=== PATIENT | female | born 1975 | race Caucasian/White ===

== ENCOUNTER 2023-08-04 21:49 | Inpatient (IN) | payer OTHER ==
[~2023-08-04] VITALS: Ht 175.3 cm; Wt 95.3 kg
[2023-08-04 22:00] VITALS: BP 107/78; TEMP 97.8; O2SAT 99
[2023-08-04] MEDS ORDERED: MORPHINE SULFATE INJ 4 MG/ML DISP.SYRIN IV PRN (23:00)
[2023-08-05] MEDS ORDERED: ONDANSETRON HCL/PF 4 MG/2 ML VIAL IVP PRN (00:30)
[2023-08-05] MEDS ORDERED: DEXTROSE 50%-WATER 50 ML DISP.SYRIN IV PRN (00:30)
[2023-08-05] MEDS ORDERED: ENOXAPARIN SODIUM 30 MG/0.3 ML DISP.SYRIN SQ SCH (00:30)
[2023-08-05] MEDS ORDERED: Z GUARD REMEDY 4 OZ OINT TP PRN (00:30)
[2023-08-05] MEDS ORDERED: MAG HYDROX/AL HYDROX/SIMETH 30 ML UDC PO PRN (00:30)
[2023-08-05] MEDS ORDERED: ZOLPIDEM TARTRATE 5 MG TABLET PO PRN (00:30)
[2023-08-05] MEDS ORDERED: ACETAMINOPHEN 325 MG TABLET PO PRN (00:30)
[2023-08-05] MEDS ORDERED: MAGNESIUM HYDROXIDE 30 ML UDC PO PRN (00:30)
[2023-08-05] MEDS ORDERED: CEFTRIAXONE 1GM BAG (ER ONLY) 50 ML IV ONE (00:43)
[2023-08-05] MEDS: PREGABALIN 25 MG CAPSULE PO SCH ×3 (00:54→16:08)
[2023-08-05] MEDS: IV NS 0.9% 1,000 ML IV PRN (00:54)
[2023-08-05] MEDS: CEFTRIAXONE 1 G in IV D5W 50 ML IV SCH (00:54)
[2023-08-05] MEDS: HYDROCODONE/APAP 5/325MG TABLET PO PRN ×2 (02:02→17:45)
[2023-08-05 06:04] LABS: BASOPHILS % (AUTO) 0.2 % (0.0-2.0); EOSINOPHILS % (AUTO) 0.4 % (0.0-6.0); HEMATOCRIT 26 % (33-45); HEMOGLOBIN 8.8 g/dL (11.5-14.8); LYMPHOCYTES # (AUTO) 1.7 K/uL (0.8-4.8); LYMPHOCYTES % (AUTO) 22.5 % (20.0-44.0); MEAN CORPUSCULAR HEMOGLOBIN 32 PG (26.0-33.0); MEAN CORPUSCULAR HGB CONC 34 g/dl (31.0-36.0); MEAN CORPUSCULAR VOLUME 96 fL (82-100); MONOCYTES # (AUTO) 0.4 K/uL (0.1-1.30); MONOCYTES % (AUTO) 5.5 % (2.0-12.0); NEUTROPHILS # (AUTO) 5.4 K/uL (1.8-8.9); NEUTROPHILS % (AUTO) 71.4 % (43.0-81.0); PLATELET COUNT (AUTO) 181 K/uL (150-450); RED BLOOD CELL COUNT(AUTO) 2.72 MIL/uL (4.0-5.2); RED CELL DISTRIBUTION WIDTH 13.3 % (11.5-15.0); WHITE BLOOD COUNT (AUTO) 7.5 K/uL (4.3-11.0)
[2023-08-05 06:05] LABS: ALBUMIN 2.8 g/dL (3.4-5.0); BILIRUBIN,DIRECT 0.1 mg/dL (0.0-0.2); BILIRUBIN,TOTAL 0.2 mg/dL (0.2-1.0); CALCIUM, SERUM 8.4 mg/dL (8.5-10.1); CREATININE 1.3 mg/dL (0.6-1.3); MAGNESIUM 2.1 mg/dL (1.8-2.4); PHOSPHORUS 3.9 mg/dL (2.5-4.9); POTASSIUM 3.5 mmol/L (3.5-5.1); TOTAL PROTEIN, SERUM 6.6 g/dL (6.4-8.2)
[2023-08-05] MEDS: BLOOD SUGAR DIAGNOSTIC 1 EACH STRIP IN SCH ×4 (06:16→21:18)
[2023-08-05 06:25] LABS: THYROID STIMULATING HORMONE 92.125 uIU/mL (0.358-3.74)
[2023-08-05 08:00] VITALS: BP 116/60; TEMP 97.5; O2SAT 98
[2023-08-05] MEDS ORDERED: NITR100C PO (08:08)
[2023-08-05] MEDS ORDERED: LEVO25TA7 PO (08:08)
[2023-08-05] MEDS ORDERED: NALO4SPR BNOSTRILS (08:08)
[2023-08-05] MEDS: LEVOTHYROXINE SODIUM 25 MCG TABLET PO SCH (08:15)
[2023-08-05] MEDS: PANTOPRAZOLE 40 MG VIAL IV SCH (08:41)
[2023-08-05] MEDS: INSULIN REGULAR, HUMAN 100 UNIT/ML 3 ML VIAL SQ PRN ×4 (09:19→21:34)
[2023-08-05 16:01] VITALS: BP 114/53; TEMP 97.8; O2SAT 95
[2023-08-05 20:00] VITALS: BP 142/92; TEMP 98.6; O2SAT 96
[2023-08-05] MEDS: ENOXAPARIN SODIUM 40 MG/0.4 ML DISP.SYRIN SQ SCH (20:48)
[2023-08-06] MEDS: CEFTRIAXONE 1 G in IV D5W 50 ML IV SCH (00:41)
[2023-08-06] MEDS: BLOOD SUGAR DIAGNOSTIC 1 EACH STRIP IN SCH ×4 (05:30→21:50)
[2023-08-06 05:58] LABS: BASOPHILS % (AUTO) 0.3 % (0.0-2.0); EOSINOPHILS % (AUTO) 0.9 % (0.0-6.0); HEMATOCRIT 28 % (33-45); HEMOGLOBIN 9.3 g/dL (11.5-14.8); LYMPHOCYTES # (AUTO) 2.1 K/uL (0.8-4.8); MEAN CORPUSCULAR HEMOGLOBIN 32 PG (26.0-33.0); MEAN CORPUSCULAR HGB CONC 33 g/dl (31.0-36.0); MEAN CORPUSCULAR VOLUME 96 fL (82-100); MONOCYTES # (AUTO) 0.3 K/uL (0.1-1.30); MONOCYTES % (AUTO) 6.4 % (2.0-12.0); NEUTROPHILS # (AUTO) 2.7 K/uL (1.8-8.9); NEUTROPHILS % (AUTO) 51.4 % (43.0-81.0); PLATELET COUNT (AUTO) 184 K/uL (150-450); RED BLOOD CELL COUNT(AUTO) 2.93 MIL/uL (4.0-5.2); RED CELL DISTRIBUTION WIDTH 13.3 % (11.5-15.0); WHITE BLOOD COUNT (AUTO) 5.2 K/uL (4.3-11.0)
[2023-08-06 06:32] LABS: CALCIUM, SERUM 8.4 mg/dL (8.5-10.1); CREATININE 1.4 mg/dL (0.6-1.3); MAGNESIUM 2.1 mg/dL (1.8-2.4); PHOSPHORUS 3.5 mg/dL (2.5-4.9); POTASSIUM 3.8 mmol/L (3.5-5.1)
[2023-08-06 06:49] LABS: T4 (THYROXINE) 1.1 ug/dL (4.7-13.3)
[2023-08-06 08:00] VITALS: BP 137/77; TEMP 98.7; O2SAT 93
[2023-08-06] MEDS: LEVOTHYROXINE SODIUM 25 MCG TABLET PO SCH (08:03)
[2023-08-06] MEDS: PREGABALIN 25 MG CAPSULE PO SCH ×2 (08:20→16:24)
[2023-08-06] MEDS: PANTOPRAZOLE 40 MG VIAL IV SCH (08:21)
[2023-08-06] MEDS: CADEXOMER IODINE 40 GM TUBE TP SCH (09:56)
[2023-08-06 11:27] LABS: THYROID STIMULATING HORMONE 139.96 uIU/mL (0.358-3.74)
[2023-08-06] MEDS: INSULIN REGULAR, HUMAN 100 UNIT/ML 3 ML VIAL SQ PRN ×3 (12:16→22:10)
[2023-08-06 16:00] VITALS: BP 143/84; TEMP 98.3; O2SAT 94
[2023-08-06] MEDS: IV NS 0.9% 1,000 ML IV PRN (18:35)
[2023-08-06 20:00] VITALS: BP 130/74; TEMP 98.2; O2SAT 96
[2023-08-06] MEDS: ENOXAPARIN SODIUM 40 MG/0.4 ML DISP.SYRIN SQ SCH (21:50)
[2023-08-07] MEDS: CEFTRIAXONE 1 G in IV D5W 50 ML IV SCH (00:36)
[2023-08-07] MEDS: BLOOD SUGAR DIAGNOSTIC 1 EACH STRIP IN SCH ×4 (06:19→21:12)
[2023-08-07] MEDS: INSULIN REGULAR, HUMAN 100 UNIT/ML 3 ML VIAL SQ PRN ×4 (06:23→21:15)
[2023-08-07] MEDS: HYDROCODONE/APAP 5/325MG TABLET PO PRN (07:58)
[2023-08-07 08:00] VITALS: BP 143/82; TEMP 97.6; O2SAT 97
[2023-08-07] MEDS: CADEXOMER IODINE 40 GM TUBE TP SCH (08:04)
[2023-08-07] MEDS: PANTOPRAZOLE 40 MG TABLET.DR PO SCH (08:05)
[2023-08-07] MEDS: PREGABALIN 25 MG CAPSULE PO SCH ×2 (08:05→17:42)
[2023-08-07] MEDS: LEVOTHYROXINE SODIUM 100 MCG TABLET PO SCH (08:05)
[2023-08-07 08:54] LABS: BASOPHILS % (AUTO) 0.6 % (0.0-2.0); HEMATOCRIT 32 % (33-45); HEMOGLOBIN 10.6 g/dL (11.5-14.8); LYMPHOCYTES # (AUTO) 1.6 K/uL (0.8-4.8); LYMPHOCYTES % (AUTO) 40.3 % (20.0-44.0); MEAN CORPUSCULAR HEMOGLOBIN 33 PG (26.0-33.0); MEAN CORPUSCULAR HGB CONC 34 g/dl (31.0-36.0); MEAN CORPUSCULAR VOLUME 98 fL (82-100); MONOCYTES # (AUTO) 0.2 K/uL (0.1-1.30); MONOCYTES % (AUTO) 5.7 % (2.0-12.0); NEUTROPHILS # (AUTO) 2.1 K/uL (1.8-8.9); NEUTROPHILS % (AUTO) 52.4 % (43.0-81.0); PLATELET COUNT (AUTO) 163 K/uL (150-450); RED BLOOD CELL COUNT(AUTO) 3.24 MIL/uL (4.0-5.2); RED CELL DISTRIBUTION WIDTH 13.2 % (11.5-15.0); WHITE BLOOD COUNT (AUTO) 4.1 K/uL (4.3-11.0)
[2023-08-07 09:31] LABS: ALBUMIN 3.3 g/dL (3.4-5.0); BILIRUBIN,TOTAL 0.2 mg/dL (0.2-1.0); CALCIUM, SERUM 9.3 mg/dL (8.5-10.1); CREATININE 1.2 mg/dL (0.6-1.3); MAGNESIUM 2.1 mg/dL (1.8-2.4); PHOSPHORUS 3.8 mg/dL (2.5-4.9); POTASSIUM 4.2 mmol/L (3.5-5.1); TOTAL PROTEIN, SERUM 8.5 g/dL (6.4-8.2)
[2023-08-07 09:41] LABS: C-REACTIVE PROTEIN 2.05 mg/dL (0.0-0.30)
[2023-08-07 14:39] LABS: HIV-1 p24 ANTIGEN NON REACTIVE (NONREACTIVE); HIV-1/2 ANTIBODY NON REACTIVE (NONREACTIVE)
[2023-08-07 16:00] VITALS: BP 114/70; TEMP 96.4; O2SAT 96
[2023-08-07] MEDS: ENOXAPARIN SODIUM 40 MG/0.4 ML DISP.SYRIN SQ SCH (21:00)
[2023-08-08] MEDS: CEFTRIAXONE 1 G in IV D5W 50 ML IV SCH (00:25)
[2023-08-08] MEDS: IV NS 0.9% 1,000 ML IV PRN (00:54)
[2023-08-08 07:12] LABS: PTH, INTACT 30 pg/mL (15-65)
[2023-08-08 07:25] LABS: BASOPHILS % (AUTO) 0.4 % (0.0-2.0); EOSINOPHILS # (AUTO) 0.1 K/uL (0.0-0.7); EOSINOPHILS % (AUTO) 1.3 % (0.0-6.0); HEMATOCRIT 29 % (33-45); HEMOGLOBIN 9.7 g/dL (11.5-14.8); LYMPHOCYTES # (AUTO) 1.7 K/uL (0.8-4.8); LYMPHOCYTES % (AUTO) 41.7 % (20.0-44.0); MEAN CORPUSCULAR HEMOGLOBIN 32 PG (26.0-33.0); MEAN CORPUSCULAR HGB CONC 33 g/dl (31.0-36.0); MEAN CORPUSCULAR VOLUME 95 fL (82-100); MONOCYTES # (AUTO) 0.3 K/uL (0.1-1.30); MONOCYTES % (AUTO) 7.4 % (2.0-12.0); NEUTROPHILS # (AUTO) 2.1 K/uL (1.8-8.9); NEUTROPHILS % (AUTO) 49.2 % (43.0-81.0); PLATELET COUNT (AUTO) 184 K/uL (150-450); RED BLOOD CELL COUNT(AUTO) 3.03 MIL/uL (4.0-5.2); RED CELL DISTRIBUTION WIDTH 13.4 % (11.5-15.0); WHITE BLOOD COUNT (AUTO) 4.2 K/uL (4.3-11.0)
[2023-08-08 07:53] LABS: CREATININE 1.2 mg/dL (0.6-1.3); PHOSPHORUS 3.7 mg/dL (2.5-4.9); POTASSIUM 4.7 mmol/L (3.5-5.1)
[2023-08-08 08:00] VITALS: BP 143/84; TEMP 97.5; O2SAT 100
[2023-08-08] MEDS: LEVOTHYROXINE SODIUM 100 MCG TABLET PO SCH (08:21)
[2023-08-08] MEDS: PANTOPRAZOLE 40 MG TABLET.DR PO SCH (08:21)
[2023-08-08] MEDS: PREGABALIN 25 MG CAPSULE PO SCH ×2 (08:21→16:16)
[2023-08-08] MEDS: CADEXOMER IODINE 40 GM TUBE TP SCH (08:22)
[2023-08-08] MEDS: INSULIN REGULAR, HUMAN 100 UNIT/ML 3 ML VIAL SQ PRN ×4 (08:32→21:06)
[2023-08-08] MEDS: BLOOD SUGAR DIAGNOSTIC 1 EACH STRIP IN SCH ×4 (08:32→21:03)
[2023-08-08 11:07] LABS: *SPE A/G RATIO 0.7 (0.7-1.7); *SPE ALPHA-1-GLOBULIN 0.2 g/dL (0.0-0.4); *SPE ALPHA-2-GLOBULIN 0.9 g/dL (0.4-1.0); *SPE GLOBULIN, TOTAL 4.2 g/dL (2.2-3.9); *SPE M-SPIKE Not Observed g/dL (Not Observed); *SPE PROTEIN TOTAL 7.2 g/dL (6.0-8.5)
[2023-08-08 16:00] VITALS: BP 143/95; TEMP 98.4; O2SAT 97
[2023-08-08 20:00] VITALS: BP 121/76; TEMP 98.4; O2SAT 98
[2023-08-08] MEDS: ENOXAPARIN SODIUM 40 MG/0.4 ML DISP.SYRIN SQ SCH (20:57)
[2023-08-09] MEDS: CEFTRIAXONE 1 G in IV D5W 50 ML IV SCH (00:13)
[2023-08-09 05:52] LABS: BASOPHILS % (AUTO) 0.5 % (0.0-2.0); EOSINOPHILS # (AUTO) 0.1 K/uL (0.0-0.7); EOSINOPHILS % (AUTO) 1.5 % (0.0-6.0); HEMATOCRIT 30 % (33-45); HEMOGLOBIN 10.1 g/dL (11.5-14.8); LYMPHOCYTES % (AUTO) 49.8 % (20.0-44.0); MEAN CORPUSCULAR HEMOGLOBIN 32 PG (26.0-33.0); MEAN CORPUSCULAR HGB CONC 34 g/dl (31.0-36.0); MEAN CORPUSCULAR VOLUME 96 fL (82-100); MONOCYTES # (AUTO) 0.3 K/uL (0.1-1.30); MONOCYTES % (AUTO) 7.8 % (2.0-12.0); NEUTROPHILS # (AUTO) 1.6 K/uL (1.8-8.9); NEUTROPHILS % (AUTO) 40.4 % (43.0-81.0); PLATELET COUNT (AUTO) 189 K/uL (150-450); RED BLOOD CELL COUNT(AUTO) 3.15 MIL/uL (4.0-5.2); RED CELL DISTRIBUTION WIDTH 13.4 % (11.5-15.0); WHITE BLOOD COUNT (AUTO) 3.9 K/uL (4.3-11.0)
[2023-08-09 06:21] LABS: ALBUMIN 2.9 g/dL (3.4-5.0); BILIRUBIN,TOTAL 0.2 mg/dL (0.2-1.0); CALCIUM, SERUM 8.7 mg/dL (8.5-10.1); CREATININE 1.2 mg/dL (0.6-1.3); MAGNESIUM 2.1 mg/dL (1.8-2.4); PHOSPHORUS 3.6 mg/dL (2.5-4.9); POTASSIUM 4.2 mmol/L (3.5-5.1); TOTAL PROTEIN, SERUM 7.3 g/dL (6.4-8.2)
[2023-08-09] MEDS: BLOOD SUGAR DIAGNOSTIC 1 EACH STRIP IN SCH ×4 (06:41→22:09)
[2023-08-09] MEDS: INSULIN REGULAR, HUMAN 100 UNIT/ML 3 ML VIAL SQ PRN ×4 (06:46→22:21)
[2023-08-09 08:00] VITALS: BP 143/77; TEMP 98.6; O2SAT 96
[2023-08-09] MEDS: PANTOPRAZOLE 40 MG TABLET.DR PO SCH (08:41)
[2023-08-09] MEDS: PREGABALIN 25 MG CAPSULE PO SCH ×2 (08:41→16:36)
[2023-08-09] MEDS: LEVOTHYROXINE SODIUM 100 MCG TABLET PO SCH (08:41)
[2023-08-09] MEDS: CADEXOMER IODINE 40 GM TUBE TP SCH (10:28)
[2023-08-09 16:00] VITALS: BP 96/54; TEMP 98.8; O2SAT 97
[2023-08-09 16:53] VITALS: BP 123/72
[2023-08-09 20:00] VITALS: BP 100/61; TEMP 97.4; O2SAT 95
[2023-08-09] MEDS: ENOXAPARIN SODIUM 40 MG/0.4 ML DISP.SYRIN SQ SCH (21:08)
[2023-08-10] MEDS: BLOOD SUGAR DIAGNOSTIC 1 EACH STRIP IN SCH ×2 (06:04→11:27)
[2023-08-10] MEDS: INSULIN REGULAR, HUMAN 100 UNIT/ML 3 ML VIAL SQ PRN ×2 (06:05→11:31)
[2023-08-10 07:00] VITALS: BP 162/82; TEMP 97.4; O2SAT 97
[2023-08-10] MEDS: PANTOPRAZOLE 40 MG TABLET.DR PO SCH (08:04)
[2023-08-10] MEDS: LEVOTHYROXINE SODIUM 100 MCG TABLET PO SCH (08:04)
[2023-08-10] MEDS: PREGABALIN 25 MG CAPSULE PO SCH (08:04)
[2023-08-10] MEDS: CADEXOMER IODINE 40 GM TUBE TP SCH (08:09)
== END 2023-08-10 17:39 | disposition home or self-care (01) | DRG 463 ==
LOC: MED 21:49
PROVIDERS: ADMIT Nurse Practitioner Family; ATTEND Nurse Practitioner Acute Care
PROC: 0JBR0ZZ Excision of Left Foot Subcutaneous Tissue and Fascia, Open Approach (ICD-10-PCS; principal; 2023-08-05)
PROC: 05H633Z Insertion of Infusion Device into Left Subclavian Vein, Percutaneous Approach (ICD-10-PCS; 2023-08-08)
PROC: B547ZZA Ultrasonography of Left Subclavian Vein, Guidance (ICD-10-PCS; 2023-08-08)
DX: N39.0 Urinary tract infection, site not specified (principal); N17.9 Acute kidney failure, unspecified; E11.42 Type 2 diabetes mellitus with diabetic polyneuropathy; A04.72 Enterocolitis due to Clostridium difficile, not specified as recurrent; M86.672 Other chronic osteomyelitis, left ankle and foot; E11.621 Type 2 diabetes mellitus with foot ulcer; E11.610 Type 2 diabetes mellitus with diabetic neuropathic arthropathy; L97.529 Non-pressure chronic ulcer of other part of left foot with unspecified severity; D64.9 Anemia, unspecified; B96.1 Klebsiella pneumoniae [K. pneumoniae] as the cause of diseases classified elsewhere; E03.9 Hypothyroidism, unspecified; E11.69 Type 2 diabetes mellitus with other specified complication; R19.7 Diarrhea, unspecified; F31.9 Bipolar disorder, unspecified; J98.11 Atelectasis; Z89.511 Acquired absence of right leg below knee; Z59.00 Homelessness unspecified; Z83.3 Family history of diabetes mellitus; Z90.710 Acquired absence of both cervix and uterus; R74.01 Elevation of levels of liver transaminase levels; Z85.42 Personal history of malignant neoplasm of other parts of uterus; F17.210 Nicotine dependence, cigarettes, uncomplicated; F19.10 Other psychoactive substance abuse, uncomplicated; Z89.412 Acquired absence of left great toe; Z89.422 Acquired absence of other left toe(s); N18.9 Chronic kidney disease, unspecified; L98.8 Other specified disorders of the skin and subcutaneous tissue; Z88.1 Allergy status to other antibiotic agents; Z16.12 Extended spectrum beta lactamase (ESBL) resistance; Z16.24 Resistance to multiple antibiotics
CPT/HCPCS: 36415; 71045-TC; 73630-TC; 80048-TC; 80053-TC; 80061-TC; 80076-TC; 82550-TC; 82607-TC; 82728-TC; 82962-TC; 83540-TC; 83735-TC; 83970; 84100-TC; 84155; 84165; 84436-TC; 84443-TC; 85025-TC; 85652-TC; 86140-TC; 86803; 87040-TC; 87081-TC; 87806; 93926-TC; 93971-TC; 97112-TC; 97530-TC; A4223; A6403; C9113; G0378; J0696; J1650; J1815; J7030; J7060